=== PATIENT | female | born 1930 | race Caucasian/White ===

== ENCOUNTER 2018-04-23 21:43 | Inpatient (IN) | payer MEDICARE, OTHER ==
[~2018-04-23] VITALS: Ht 165.1 cm; Wt 59.9 kg
[2018-04-23] MEDS ORDERED: ONDANSETRON 4 MG/2 ML VIAL ONE ×2 (21:56→23:50)
[2018-04-23] MEDS ORDERED: MORPHINE SULFATE 4 MG/1 ML DISP.SYRIN ONE ×3 (21:56→23:50)
[2018-04-23] MEDS ORDERED: NEOMY/BACITRA/POLYMYXIN B OINT UD PACKET TP ONE ×2 (21:57→22:00)
[2018-04-23] MEDS ORDERED: ONDANSETRON 4 MG/2 ML VIAL IV ONE (22:00)
[2018-04-23] MEDS ORDERED: MORPHINE SULFATE 2 MG/1 ML DISP.SYRIN IV ONE (22:00)
[2018-04-23] MEDS ORDERED: PANT40TA4 PO (22:06)
[2018-04-23] MEDS ORDERED: [UNRECOGNIZED DRUG - OTHER] (22:06)
[2018-04-23] MEDS ORDERED: OLME20TA13 PO (22:06)
[2018-04-23] MEDS ORDERED: LEVE100023 PO (22:06)
[2018-04-23] MEDS ORDERED: GABA-532 PO (22:06)
[2018-04-23] MEDS ORDERED: HYDR-3980 PO (22:06)
[2018-04-23] MEDS ORDERED: SILVER CENTRUM (22:06)
[2018-04-23] MEDS ORDERED: LEVO100T10 PO (22:06)
[2018-04-23] MEDS ORDERED: AMPH20TA3 PO (22:06)
[2018-04-23] MEDS ORDERED: FLUO-120 PO (22:06)
[2018-04-23] MEDS ORDERED: LATA2.5D7 EACHEYE (22:06)
[2018-04-23] MEDS ORDERED: VITAMIN C (22:06)
[2018-04-23] MEDS ORDERED: LEVE500T20 PO (22:06)
[2018-04-23] MEDS ORDERED: TOPI25TA49 PO (22:06)
[2018-04-23] MEDS ORDERED: MEMA10TA PO (22:06)
[2018-04-23] MEDS ORDERED: BIOTIN (22:06)
[2018-04-23 22:22] LABS: BASOPHILS % (AUTO) 0.3 % (0.0-2.0); EOSINOPHILS # (AUTO) 0.1 K/uL (0.0-0.7); EOSINOPHILS % (AUTO) 1.2 % (0.0-7.0); HEMATOCRIT 39.7 % (31.2-41.9); HEMOGLOBIN 13.2 g/dL (10.9-14.3); LYMPHOCYTES # (AUTO) 2.1 K/uL (20.0-40.0); LYMPHOCYTES % (AUTO) 18.9 % (20.5-51.5); MEAN CORPUSCULAR HEMOGLOBIN 32.1 uug (24.7-32.8); MEAN CORPUSCULAR HGB CONC 33 g/dL (32.3-35.6); MEAN CORPUSCULAR VOLUME 96.7 fL (75.5-95.3); MONOCYTES # (AUTO) 0.8 K/uL (2.0-10.0); MONOCYTES % (AUTO) 7.4 % (0.0-11.0); NEUTROPHILS # (AUTO) 7.8 K/uL (1.8-8.9); NEUTROPHILS % (AUTO) 72.2 % (38.5-71.5); PLATELET COUNT (AUTO) 218 K/uL (179-408); RED BLOOD CELL COUNT(AUTO) 4.11 MIL/uL (3.63-4.92); WHITE BLOOD COUNT (AUTO) 10.9 K/uL (3.8-11.8)
[2018-04-23] MEDS ORDERED: MORPHINE SULFATE 4 MG/1 ML DISP.SYRIN IV ONE (22:30)
[2018-04-23 22:44] LABS: ALANINE AMINOTRANSFERASE 28 U/L (14-59); ALKALINE PHOSPHATASE 89 U/L (50-136); ASPARTATE AMINOTRANSFERASE 19 U/L (15-37); BILIRUBIN,DIRECT 0.1 mg/dL (0.0-0.2); BILIRUBIN,TOTAL 0.3 mg/dL (0.2-1.0); CARBON DIOXIDE 20 mmol/L (21-32); CHLORIDE 106 mmol/L (98-107); CREATININE 0.9 mg/dL (0.6-1.3); GLUCOSE 100 mg/dL (74-106); POTASSIUM 3.3 mmol/L (3.5-5.1); TOTAL PROTEIN, SERUM 6.4 g/dL (6.4-8.2); UREA NITROGEN, BLOOD 27 mg/dL (7-18)
[2018-04-23] MEDS ORDERED: TDAP DIPH,PERTUSS,TET VAC/PF 0.5 ML DISP.SYRIN IM ONE ×2 (23:44→23:45)
[2018-04-23] MEDS ORDERED: CEFTRIAXONE 1 G VIAL ONE (23:44)
[2018-04-23] MEDS ORDERED: CEFTRIAXONE 1 G in IV DEXTROSE 5% 50 ML IV ONE (23:45)
[2018-04-24] MEDS ORDERED: ONDANSETRON 4 MG/2 ML VIAL IV ONE
[2018-04-24] MEDS ORDERED: MORPHINE SULFATE 4 MG/1 ML DISP.SYRIN IV ONE
[2018-04-24] MEDS ORDERED: HYDROMORPHONE 1 MG/1 ML DISP.SYRIN ONE (00:45)
[2018-04-24] MEDS ORDERED: HYDROMORPHONE 1 MG/1 ML DISP.SYRIN IV ONE ×2 (01:00→02:45)
[2018-04-24] MEDS ORDERED: LEVETIRACETAM 250 MG TABLET ONE (01:21)
[2018-04-24] MEDS ORDERED: LEVETIRACETAM 250 MG TABLET PO ONE (01:30)
[2018-04-24] MEDS ORDERED: IV NORMAL SALINE 250 ML BAG IV ONE (02:45)
[2018-04-24] MEDS ORDERED: HYDROMORPHONE 2 MG/1 ML DISP.SYRIN ONE (02:48)
[2018-04-24 03:30] VITALS: BP 117/54
[2018-04-24] MEDS ORDERED: ACETAMINOPHEN 325 MG TABLET PO PRN ×2 (03:30→04:00)
[2018-04-24] MEDS ORDERED: ONDANSETRON 4 MG/2 ML VIAL IV PRN (03:30)
[2018-04-24] MEDS ORDERED: MAGNESIUM HYDROXIDE 30 ML LIQUID UDC PO PRN ×2 (03:30→04:00)
[2018-04-24 04:00] VITALS: BP 115/55
[2018-04-24 06:11] LABS: BASOPHILS % (AUTO) 0.1 % (0.0-2.0); EOSINOPHILS # (AUTO) 0.1 K/uL (0.0-0.7); EOSINOPHILS % (AUTO) 0.6 % (0.0-7.0); HEMATOCRIT 39.6 % (31.2-41.9); HEMOGLOBIN 13.1 g/dL (10.9-14.3); LYMPHOCYTES # (AUTO) 1.9 K/uL (20.0-40.0); LYMPHOCYTES % (AUTO) 10.8 % (20.5-51.5); MEAN CORPUSCULAR HGB CONC 33 g/dL (32.3-35.6); MEAN CORPUSCULAR VOLUME 96.6 fL (75.5-95.3); MONOCYTES # (AUTO) 1.3 K/uL (2.0-10.0); MONOCYTES % (AUTO) 7.3 % (0.0-11.0); NEUTROPHILS # (AUTO) 14.1 K/uL (1.8-8.9); NEUTROPHILS % (AUTO) 81.2 % (38.5-71.5); PLATELET COUNT (AUTO) 215 K/uL (179-408); WHITE BLOOD COUNT (AUTO) 17.3 K/uL (3.8-11.8)
[2018-04-24 06:19] LABS: CARBON DIOXIDE 24 mmol/L (21-32); CHLORIDE 106 mmol/L (98-107); CREATININE 0.9 mg/dL (0.6-1.3); GLUCOSE 109 mg/dL (74-106); MAGNESIUM 2.3 mg/dL (1.8-2.4); PHOSPHOROUS 4.5 mg/dL (2.5-4.9); UREA NITROGEN, BLOOD 28 mg/dL (7-18)
[2018-04-24] MEDS ORDERED: HOME MED MISCELLANEOUS PO SCH ×2 (07:30→09:00)
[2018-04-24] MEDS ORDERED: ADDERALL 20 MG PO PRN (07:30)
[2018-04-24] MEDS ORDERED: BIOTIN PO SCH (07:30)
[2018-04-24] MEDS: ONDANSETRON 4 MG/2 ML VIAL IV PRN (07:39)
[2018-04-24] MEDS: HYDROMORPHONE 1 MG/1 ML DISP.SYRIN IV PRN ×2 (07:40→23:55)
[2018-04-24] MEDS ORDERED: Z GUARD REMEDY PASTE 57 GM TUBE TOP SCH (09:00)
[2018-04-24] MEDS ORDERED: LEVETIRACETAM 500 MG TABLET PO SCH (09:00)
[2018-04-24] MEDS ORDERED: MEMANTINE HCL 10 MG TABLET PO SCH (09:00)
[2018-04-24 09:09] LABS: *BILIRUBIN,URIN NEGATIVE (NEGATIVE); *BLOOD, URINE 2+ (NEGATIVE); *COLOR,URINE YELLOW (YELLOW); *KETONES,URINE NEGATIVE (NEGATIVE); *PROTEIN,URINE 2+ (NEGATIVE); *UROBILINOGEN,URINE 0.2 E.U./dl (NORMAL); LEUKOCYTE ESTERASE ,URINE 2+ (NEGATIVE); NITRITE, URINE POSITIVE (NEGATIVE); UGLUCOSE NEGATIVE (NEGATIVE)
[2018-04-24] MEDS: MULTIVIT, IRON, MIN NO. 8, FA TABLET PO SCH (09:20)
[2018-04-24] MEDS: ASCORBIC ACID 500 MG TABLET PO SCH (09:21)
[2018-04-24] MEDS: TOPIRAMATE 25 MG TABLET PO SCH (09:21)
[2018-04-24] MEDS: FLUOXETINE HCL 20 MG CAPSULE PO SCH (09:21)
[2018-04-24] MEDS: MEMANTINE HCL 10 MG TABLET PO SCH ×2 (09:21→17:26)
[2018-04-24] MEDS: GABAPENTIN 100 MG CAPSULE PO SCH ×3 (09:21→17:26)
[2018-04-24] MEDS: LOSARTAN POTASSIUM 50 MG TABLET PO SCH (09:22)
[2018-04-24] MEDS: Z GUARD REMEDY PASTE 57 GM TUBE TOP SCH ×2 (09:24→20:10)
[2018-04-24] MEDS: VITAMIN B COMPLEX 1 TABLET PO SCH (09:25)
[2018-04-24 09:34] LABS: *CLARITY,URINE CLOUDY (CLEAR); BACTERIA,URINE MANY /HPF (NONE SEEN); SQUAMOUS EPITHELIAL CELL,UR FEW /HPF (NONE SEEN); WBC,URINE TNTC /HPF (0-3)
[2018-04-24 11:07] VITALS: BP 115/65
[2018-04-24] MEDS ORDERED: LEVETIRACETAM 500 MG TABLET PO ONE (11:15)
[2018-04-24] MEDS: LEVOTHYROXINE SODIUM 100 MCG TABLET PO SCH (11:15)
[2018-04-24] MEDS: HYDROCODONE/APAP 10-325 MG TABLET PO PRN ×2 (11:34→18:47)
[2018-04-24 15:01] VITALS: BP 104/35
[2018-04-24] MEDS: LATANOPROST OPHT DROP 2.5 ML BOTTLE EACHEYE SCH (20:06)
[2018-04-24] MEDS: LEVETIRACETAM 500 MG TABLET PO SCH (20:06)
[2018-04-24 20:32] VITALS: BP 111/56
[2018-04-25 00:15] VITALS: BP 108/54
[2018-04-25 04:00] VITALS: BP 136/64
[2018-04-25] MEDS: HYDROCODONE/APAP 10-325 MG TABLET PO PRN ×2 (05:15→21:43)
[2018-04-25] MEDS: PANTOPRAZOLE SODIUM 40 MG TABLET.DR PO SCH ×2 (06:22→06:29)
[2018-04-25] MEDS: LEVOTHYROXINE SODIUM 100 MCG TABLET PO SCH ×2 (06:22→06:29)
[2018-04-25] MEDS: ASCORBIC ACID 500 MG TABLET PO SCH (08:27)
[2018-04-25] MEDS: MEMANTINE HCL 10 MG TABLET PO SCH ×2 (08:27→17:52)
[2018-04-25] MEDS: LEVETIRACETAM 500 MG TABLET PO SCH ×2 (08:27→21:35)
[2018-04-25] MEDS: FLUOXETINE HCL 20 MG CAPSULE PO SCH (08:27)
[2018-04-25] MEDS: MULTIVIT, IRON, MIN NO. 8, FA TABLET PO SCH (08:27)
[2018-04-25] MEDS: GABAPENTIN 100 MG CAPSULE PO SCH ×3 (08:27→17:52)
[2018-04-25] MEDS: VITAMIN B COMPLEX 1 TABLET PO SCH (08:28)
[2018-04-25] MEDS: LOSARTAN POTASSIUM 50 MG TABLET PO SCH (08:33)
[2018-04-25] MEDS: TOPIRAMATE 25 MG TABLET PO SCH (09:54)
[2018-04-25] MEDS: CEFTRIAXONE 1 G in IV DEXTROSE 5% 50 ML IV SCH (09:55)
[2018-04-25] MEDS: Z GUARD REMEDY PASTE 57 GM TUBE TOP SCH ×2 (09:55→21:50)
[2018-04-25 10:15] LABS: BASOPHILS % (AUTO) 0.2 % (0.0-2.0); EOSINOPHILS # (AUTO) 0.2 K/uL (0.0-0.7); EOSINOPHILS % (AUTO) 1.2 % (0.0-7.0); HEMATOCRIT 34.2 % (31.2-41.9); HEMOGLOBIN 11.6 g/dL (10.9-14.3); LYMPHOCYTES % (AUTO) 15.8 % (20.5-51.5); MEAN CORPUSCULAR HEMOGLOBIN 32.4 uug (24.7-32.8); MEAN CORPUSCULAR HGB CONC 34 g/dL (32.3-35.6); MEAN CORPUSCULAR VOLUME 95.5 fL (75.5-95.3); MONOCYTES # (AUTO) 0.9 K/uL (2.0-10.0); MONOCYTES % (AUTO) 7.2 % (0.0-11.0); NEUTROPHILS # (AUTO) 9.6 K/uL (1.8-8.9); NEUTROPHILS % (AUTO) 75.6 % (38.5-71.5); PLATELET COUNT (AUTO) 198 K/uL (179-408); RED BLOOD CELL COUNT(AUTO) 3.58 MIL/uL (3.63-4.92); WHITE BLOOD COUNT (AUTO) 12.7 K/uL (3.8-11.8)
[2018-04-25 10:27] LABS: ALANINE AMINOTRANSFERASE 25 U/L (14-59); ALKALINE PHOSPHATASE 71 U/L (50-136); ASPARTATE AMINOTRANSFERASE 11 U/L (15-37); BILIRUBIN,TOTAL 0.3 mg/dL (0.2-1.0); CARBON DIOXIDE 26 mmol/L (21-32); CHLORIDE 101 mmol/L (98-107); CREATININE 0.7 mg/dL (0.6-1.3); GLUCOSE 111 mg/dL (74-106); MAGNESIUM 2.1 mg/dL (1.8-2.4); PHOSPHOROUS 2.6 mg/dL (2.5-4.9); POTASSIUM 4.2 mmol/L (3.5-5.1); TOTAL PROTEIN, SERUM 5.8 g/dL (6.4-8.2); UREA NITROGEN, BLOOD 18 mg/dL (7-18)
[2018-04-25 11:20] VITALS: BP 105/53
[2018-04-25 15:02] VITALS: BP 112/54
[2018-04-25 20:59] VITALS: BP 102/56
[2018-04-25] MEDS: LATANOPROST OPHT DROP 2.5 ML BOTTLE EACHEYE SCH (21:35)
[2018-04-26 00:44] VITALS: BP 111/54
[2018-04-26 05:01] VITALS: BP 133/53
[2018-04-26] MEDS: LEVOTHYROXINE SODIUM 100 MCG TABLET PO SCH (07:00)
[2018-04-26] MEDS: PANTOPRAZOLE SODIUM 40 MG TABLET.DR PO SCH (07:00)
[2018-04-26] MEDS: Z GUARD REMEDY PASTE 57 GM TUBE TOP SCH ×2 (09:00→21:19)
[2018-04-26] MEDS: VITAMIN B COMPLEX 1 TABLET PO SCH (09:00)
[2018-04-26] MEDS: MULTIVIT, IRON, MIN NO. 8, FA TABLET PO SCH (09:00)
[2018-04-26] MEDS: LOSARTAN POTASSIUM 50 MG TABLET PO SCH (09:00)
[2018-04-26] MEDS: ASCORBIC ACID 500 MG TABLET PO SCH (09:00)
[2018-04-26] MEDS: TOPIRAMATE 25 MG TABLET PO SCH (09:00)
[2018-04-26] MEDS: MEMANTINE HCL 10 MG TABLET PO SCH ×2 (09:00→17:00)
[2018-04-26] MEDS: FLUOXETINE HCL 20 MG CAPSULE PO SCH (09:00)
[2018-04-26] MEDS: LEVETIRACETAM 500 MG TABLET PO SCH ×2 (09:00→21:19)
[2018-04-26] MEDS: GABAPENTIN 100 MG CAPSULE PO SCH ×3 (09:00→17:00)
[2018-04-26] MEDS ORDERED: LORAZEPAM 2 MG/1 ML VIAL IV ONE (09:00)
[2018-04-26] MEDS ORDERED: LIDOCAINE HCL 2% 20 ML VIAL MC ONE (09:51)
[2018-04-26] MEDS ORDERED: DEXAMETHASONE SOD PHOSPHATE 4 MG INJ IV ONE (09:51)
[2018-04-26] MEDS ORDERED: ONDANSETRON 4 MG/2 ML VIAL IV ONE (09:51)
[2018-04-26] MEDS ORDERED: PROPOFOL 200 MG/20 ML BOTTLE IV ONE (09:51)
[2018-04-26] MEDS ORDERED: IV LACTATED RINGERS SOLUTION 1,000 ML BAG IV ONE (09:51)
[2018-04-26] MEDS ORDERED: SEVOFLURANE 250 ML BOTTLE IH ONE (09:51)
[2018-04-26] MEDS: CEFTRIAXONE 1 G in IV DEXTROSE 5% 50 ML IV SCH (10:06)
[2018-04-26 11:38] VITALS: BP 126/62
[2018-04-26] MEDS ORDERED: POLYMYXIN B SULFATE 500,000 UNITS, BACITRACIN 50,000 UNITS, NORMAL SALINE 20 ML MC ONE ×3 (12:00)
[2018-04-26] MEDS ORDERED: BUPIVACAINE/EPI PF 0.5% 10 ML VIAL ONE (13:43)
[2018-04-26] MEDS ORDERED: FENTANYL CITRATE 100 MCG/2 ML AMPUL ONE (14:20)
[2018-04-26] MEDS ORDERED: ONDANSETRON 4 MG/2 ML VIAL ONE (14:51)
[2018-04-26] MEDS ORDERED: HYDROCODONE/APAP 10-325 MG TABLET PO PRN (15:45)
[2018-04-26 15:51] VITALS: BP 141/64
[2018-04-26] MEDS: MORPHINE SULFATE 4 MG/1 ML DISP.SYRIN IV PRN ×3 (16:21→22:29)
[2018-04-26] MEDS: ONDANSETRON 4 MG/2 ML VIAL IV PRN (16:28)
[2018-04-26 20:17] VITALS: BP 123/60
[2018-04-26] MEDS: LATANOPROST OPHT DROP 2.5 ML BOTTLE EACHEYE SCH (21:19)
[2018-04-26] MEDS ORDERED: HALOPERIDOL LACTATE 5 MG/1 ML VIAL IM PRN (22:45)
[2018-04-26] MEDS ORDERED: LORAZEPAM 2 MG/1 ML VIAL IV PRN (23:00)
[2018-04-27 00:09] VITALS: BP 137/74
[2018-04-27 06:01] VITALS: BP 166/69
[2018-04-27 06:03] VITALS: BP 152/77
[2018-04-27] MEDS: LEVOTHYROXINE SODIUM 100 MCG TABLET PO SCH (06:10)
[2018-04-27] MEDS: PANTOPRAZOLE SODIUM 40 MG TABLET.DR PO SCH (06:11)
[2018-04-27 07:40] LABS: ALANINE AMINOTRANSFERASE 26 U/L (14-59); ALKALINE PHOSPHATASE 69 U/L (50-136); ASPARTATE AMINOTRANSFERASE 16 U/L (15-37); BILIRUBIN,TOTAL 0.4 mg/dL (0.2-1.0); CARBON DIOXIDE 27 mmol/L (21-32); CHLORIDE 106 mmol/L (98-107); CREATININE 0.6 mg/dL (0.6-1.3); GLUCOSE 88 mg/dL (74-106); MAGNESIUM 2.1 mg/dL (1.8-2.4); PHOSPHOROUS 3.4 mg/dL (2.5-4.9); TOTAL PROTEIN, SERUM 6.1 g/dL (6.4-8.2); UREA NITROGEN, BLOOD 19 mg/dL (7-18)
[2018-04-27 07:52] LABS: BASOPHILS % (AUTO) 0.2 % (0.0-2.0); EOSINOPHILS % (AUTO) 0.2 % (0.0-7.0); HEMATOCRIT 34.9 % (31.2-41.9); HEMOGLOBIN 11.9 g/dL (10.9-14.3); LYMPHOCYTES # (AUTO) 1.7 K/uL (20.0-40.0); MEAN CORPUSCULAR HEMOGLOBIN 32.4 uug (24.7-32.8); MEAN CORPUSCULAR HGB CONC 34 g/dL (32.3-35.6); MEAN CORPUSCULAR VOLUME 95.5 fL (75.5-95.3); MONOCYTES # (AUTO) 1.1 K/uL (2.0-10.0); MONOCYTES % (AUTO) 7.9 % (0.0-11.0); NEUTROPHILS # (AUTO) 11.5 K/uL (1.8-8.9); NEUTROPHILS % (AUTO) 79.7 % (38.5-71.5); PLATELET COUNT (AUTO) 201 K/uL (179-408); RED BLOOD CELL COUNT(AUTO) 3.65 MIL/uL (3.63-4.92); WHITE BLOOD COUNT (AUTO) 14.4 K/uL (3.8-11.8)
[2018-04-27 08:00] VITALS: BP 150/61
[2018-04-27] MEDS: LOSARTAN POTASSIUM 50 MG TABLET PO SCH (08:14)
[2018-04-27] MEDS: MULTIVIT, IRON, MIN NO. 8, FA TABLET PO SCH (08:14)
[2018-04-27] MEDS: LEVETIRACETAM 500 MG TABLET PO SCH (08:14)
[2018-04-27] MEDS: TOPIRAMATE 25 MG TABLET PO SCH (08:14)
[2018-04-27] MEDS: ASCORBIC ACID 500 MG TABLET PO SCH (08:14)
[2018-04-27] MEDS: MEMANTINE HCL 10 MG TABLET PO SCH (08:14)
[2018-04-27] MEDS: FLUOXETINE HCL 20 MG CAPSULE PO SCH (08:14)
[2018-04-27] MEDS: GABAPENTIN 100 MG CAPSULE PO SCH ×2 (08:14→13:10)
[2018-04-27] MEDS: MORPHINE SULFATE 4 MG/1 ML DISP.SYRIN IV PRN (08:15)
[2018-04-27] MEDS: Z GUARD REMEDY PASTE 57 GM TUBE TOP SCH (08:16)
[2018-04-27] MEDS: VITAMIN B COMPLEX 1 TABLET PO SCH (08:18)
[2018-04-27] MEDS: CEFTRIAXONE 1 G in IV DEXTROSE 5% 50 ML IV SCH (09:46)
[2018-04-27 11:20] VITALS: BP 148/75
== END 2018-04-27 16:20 | disposition home health service (06) | DRG 511 ==
LOC: ER 21:45 → TELE 04-24 02:57 → MED 04-27 14:39
PROVIDERS: ADMIT Internal Medicine; ATTEND Internal Medicine
PROC: 0HQEXZZ Repair Left Lower Arm Skin, External Approach (ICD-10-PCS; 2018-04-26)
PROC: 0PSL04Z Reposition Left Ulna with Internal Fixation Device, Open Approach (ICD-10-PCS; principal; 2018-04-26 12:42)
DX: S52.022A Displaced fracture of olecranon process without intraarticular extension of left ulna, initial encounter for closed fracture (principal); N39.0 Urinary tract infection, site not specified; J98.11 Atelectasis; J84.9 Interstitial pulmonary disease, unspecified; F05 Delirium due to known physiological condition; W01.0XXA Fall on same level from slipping, tripping and stumbling without subsequent striking against object, initial encounter; Y93.01 Activity, walking, marching and hiking; Y92.410 Unspecified street and highway as the place of occurrence of the external cause; S51.012A Laceration without foreign body of left elbow, initial encounter; E03.9 Hypothyroidism, unspecified; R26.9 Unspecified abnormalities of gait and mobility; K21.9 Gastro-esophageal reflux disease without esophagitis; F90.9 Attention-deficit hyperactivity disorder, unspecified type; S00.81XA Abrasion of other part of head, initial encounter; S00.83XA Contusion of other part of head, initial encounter; G40.909 Epilepsy, unspecified, not intractable, without status epilepticus; Z79.899 Other long term (current) drug therapy; F32.9 Major depressive disorder, single episode, unspecified; I10 Essential (primary) hypertension; E87.6 Hypokalemia; M25.78 Osteophyte, vertebrae; M43.5X2 Other recurrent vertebral dislocation, cervical region; M47.812 Spondylosis without myelopathy or radiculopathy, cervical region; M40.202 Unspecified kyphosis, cervical region
CPT/HCPCS: 36415; 70030-TC; 70450; 70486; 71045; 72125; 73060; 73070; 73080; 73090; 76000; 83735; 84100; 85025; 85730; 87077; 87086; 90715; 93005; A4649; A4663; J0696; J1100; J1170; J1630; J2060; J2270; J2405; J3010; J3490; J7030; J7040; J7050; J7060; J7120